=== PATIENT | male | born 1970 | race Caucasian/White ===

== ENCOUNTER 2016-11-20 09:10 | Day surgery (SDC) | payer OTHER ==
[~2016-11-20] VITALS: Ht 172.7 cm; Wt 74.6 kg
[2016-11-20 10:00] VITALS: BP 128/72; PULSE 72; TEMP 98.1
[2016-11-20 11:35] VITALS: BP 101/64; PULSE 83; TEMP 98.2
[2016-11-20 11:45] VITALS: BP 101/58; PULSE 75
[2016-11-20 12:00] VITALS: BP 104/66; PULSE 74
[2016-11-20 12:15] VITALS: BP 105/72; PULSE 69
[2016-11-20 15:53] VITALS: BP 97/67; PULSE 82
== END 2016-11-20 12:35 | disposition home or self-care (01) ==
LOC: SDCO 09:10
DX: J40 Bronchitis, not specified as acute or chronic (principal); D86.9 Sarcoidosis, unspecified; Z79.899 Other long term (current) drug therapy; Z79.1 Long term (current) use of non-steroidal anti-inflammatories (NSAID)
CPT/HCPCS: J2704; J7030